=== PATIENT | female | born 1935 | race Caucasian/White ===

== ENCOUNTER 2017-02-20 19:48 | Observation (INO) | payer OTHER, BC ==
[~2017-02-20] VITALS: Ht 157.5 cm; Wt 98.7 kg
[~2017-02-20 19:48] MED LIST: ACTOS45 MG PO; AMBIEN10 M1 PO; ASPIR 8181 M1 PO; BENAZEPRIL HCL20 MG PO; CALTRATE PLUS1 EACH PO; CETIRIZINE HCL10 M2 PO; CIPRO500 MG PO; DIABETA,MICRONAS5 MG PO; FISH OIL 1,0001 EAC7 PO; FLAGYL500 MG PO; GLUCOPHAGE1000 MG PO; LOTENSIN20 MG PO; METFORMIN HCL1000 MG PO; MOBIC15 MG PO; NEURONTIN100 MG PO; NORVASC10 MG PO; NORVASC5 M1 PO; PERCOCET 5/31 TABLET PO; PROTONIX40 MG PO; TRADJENTA5 MG PO; ZOCOR20 MG PO
[2017-02-20 20:53] LABS: HEMATOCRIT 32.7 % (36.0-46.0); MCH 28.9 PG (29.0-34.0); MCHC 32.4 G/DL (30.0-36.0); MCV 89.1 FL (83-99); MEAN PLAT.VOLUME 10.8 uM^3 (9.5-12.4); PLATELET COUNT 176 K/uL (156-360); RBC DIS.WIDTH-CV 14.1 % (11.8-14.6); RBC DIS.WIDTH-SD 46.1 % (39-53); RED BLOOD COUNT 3.67 M/uL (3.80-5.20); WHITE BLOOD COUNT 5.6 K/uL (4.1-10.2)
[2017-02-20 21:04] LABS: CHLORIDE 101 mEq/L (99-109); SODIUM 136 mEq/L (136-147)
[2017-02-20 21:06] LABS: GLUCOSE 184 mg/dL (70-99)
[2017-02-20 21:07] LABS: ANION GAP 10 MEQ/L (2-14)
[2017-02-20 21:10] LABS: GFR ESTIMATE (CALCULATED) 46 mL/min/
[2017-02-20 21:11] LABS: UREA NITROGEN (BUN) 22 mg/dL (9-23)
[2017-02-20 21:18] LABS: TROP-I INTERPRETATION NEGATIVE; TROPONIN-I 0.02 ng/mL (0.0-0.30)
[2017-02-20 22:13] LABS: ADD MIUA? NO; BILIRUBIN NEGATIVE; BLOOD NEGATIVE; COLOR YELLOW ((YELLOW)); GLUCOSE (STRIP) NEGATIVE; KETONES NEGATIVE; LEUKOCYTES NEGATIVE; NITRITE NEGATIVE; PROTEIN (STRIP) NEGATIVE; SPECIFIC GRAVITY 1.009 (1.000-1.030); UCUL ADDED? NO; UROBILINOGEN 0.2 MG/DL (0.2-1.0)
[2017-02-20 22:29] LABS: INFLUENZA A VIRAL ANTIGEN NEGATIVE; INFLUENZA B VIRAL ANTIGEN NEGATIVE
[2017-02-20] MEDS ORDERED: SYSTANE ULTRA 015 ML BOTH EYES (23:17)
[2017-02-20] MEDS ORDERED: NESINA12.5 MG PO (23:17)
[2017-02-20] MEDS ORDERED: PRESERVISION T1 EACH PO (23:19)
[2017-02-20] MEDS ORDERED: OSTEO BI-FLEX1 EAC1 PO (23:19)
[2017-02-20] MEDS ORDERED: METOPROLOL TAR100 MG PO (23:20)
[2017-02-20] MEDS ORDERED: VALSARTAN-HCTZ1 EAC3 PO (23:20)
[2017-02-20] MEDS ORDERED: NORVASC5 MG PO (23:21)
[2017-02-21 00:01] LABS: CREATINE KINASE 36 IU/L (1-294)
[2017-02-21 00:21] VITALS: BP 167/67
[2017-02-21 04:12] VITALS: BP 166/70
[2017-02-21 08:20] VITALS: BP 160/95
[2017-02-21 09:19] LABS: POINT-OF-CARE METER ID UU13113831
[2017-02-21 11:52] VITALS: BP 162/65
[2017-02-21 12:35] LABS: POINT-OF-CARE METER ID UU13113700
[2017-02-21] MEDS ORDERED: NORVASC10 MG PO (13:28)
[2017-02-21 13:59] VITALS: BP 130/61
== END 2017-02-21 15:21 | disposition home or self-care (01) ==
LOC: EME 19:48 → EDOF 22:49 → 5WEST 22:49 → EDOF 22:49 → 5WEST 02-21 00:11
PROVIDERS: Emergency Medicine; Hospitalist
DX: R10.9 Unspecified abdominal pain (principal); M79.1 Myalgia; E66.01 Morbid (severe) obesity due to excess calories; Z68.41 Body mass index [BMI] 40.0-44.9, adult; K21.9 Gastro-esophageal reflux disease without esophagitis; G47.33 Obstructive sleep apnea (adult) (pediatric); I12.9 Hypertensive chronic kidney disease with stage 1 through stage 4 chronic kidney disease, or unspecified chronic kidney disease; N18.3 Chronic kidney disease, stage 3 (moderate); E11.65 Type 2 diabetes mellitus with hyperglycemia; E78.5 Hyperlipidemia, unspecified
CPT/HCPCS: 71020; 80048; 81003; 82550; 82550 91; 82948; 84484; 85027; 87502; 93005; 99281; 99285; G0378; J1200; J1815; J7030